=== PATIENT | male | born 1955 | race African-American/Black ===

== ENCOUNTER 2021-04-01 17:23 | Inpatient (IN) | payer MEDICARE, SELFPAY ==
[2021-04-01 23:54] VITALS: BMI 20.2
[2021-04-02] MEDS ORDERED: Acetaminophen 325 MG TAB PO PRN (04:57)
[2021-04-02] MEDS ORDERED: Ondansetron ODT 4 MG TAB PO PRN (04:57)
[2021-04-02] MEDS ORDERED: Acetaminophen 650 MG Suppository PR PRN (04:57)
[2021-04-02] MEDS ORDERED: Ondansetron PF 4 MG/2 ML Vial IVP PRN (04:57)
[2021-04-02] MEDS ORDERED: VANCOMYCIN 1.25 GM/250 ML BAG 1.25 GM in Premix Bag 1 BAG IVPB SCH (05:10)
[2021-04-02] MEDS: Cefepime 2 GM in Sodium Chloride 0.9% 100 ML IVPB SCH ×2 (06:09→16:59)
[2021-04-02] MEDS: Vancomycin 1 GM in Premix Bag 1 BAG IVPB SCH ×2 (06:09→17:16)
[2021-04-02] MEDS: Sodium Chloride 0.9% 1,000 ML IV SCH ×2 (06:09→16:59)
[2021-04-02] MEDS ORDERED: FLU VACC QS2021-22(6MOS UP)/PF 60 MCG/0.5 ML SYRINGE IM ONE (09:00)
[2021-04-02] MEDS: Enoxaparin Sodium 40 MG/0.4 ML SYRINGE SC SCH (10:13)
[2021-04-02 11:16] LABS: Albumin (w/Testosterone Panel) 3.5 g/dL
[2021-04-02 11:43] LABS: Sex Hormone Binding Globulin 86.4 nmol/L (11-78); Testosterone, Free 45.6 pg/mL (47-244); Testosterone, Total 428.5 ng/dL (221-716)
[2021-04-02 12:00] LABS: SARS-CoV-2 PCR by NAA Not Detected (NotDetected)
[2021-04-02] MEDS ORDERED: Bicalutamide 50 MG TAB PO SCH (15:30)
[2021-04-02] MEDS ORDERED: traMADol HCl 50 MG TAB PO PRN (15:50)
[2021-04-02] MEDS ORDERED: Polyethylene Glycol 3350 17 GM Packet PO SCH (16:15)
[2021-04-02] MEDS ORDERED: Lidocaine 5% Patch TD SCH (16:15)
[2021-04-02] MEDS: Amlodipine 10 MG TAB PO SCH (20:33)
[2021-04-02] MEDS: Tamsulosin HCl 0.4 MG CAP PO SCH (20:33)
[2021-04-02] MEDS: Docusate 100 MG CAP PO SCH (20:33)
[2021-04-02] MEDS: hydrALAZINE 25 MG TAB PO SCH (20:34)
[2021-04-02] MEDS: Transdermal Patch Removal TOP SCH (20:34)
[2021-04-03] MEDS: Cefepime 2 GM in Sodium Chloride 0.9% 100 ML IVPB SCH ×2 (05:18→16:47)
[2021-04-03] MEDS: Vancomycin 1 GM in Premix Bag 1 BAG IVPB SCH (05:20)
[2021-04-03 05:58] LABS: #Eosinphils 0.3 thou/uL (0.0-0.7); #Lymphocytes 1.4 thou/uL (1.20-3.40); #Monocytes 0.6 thou/uL (0.11-0.59); #Neutrophils 3.5 thou/uL (1.40-6.50); %Basophils 0.6 % (0.0-1.0); %Eosinophils 4.7 % (0.0-10.0); %Monocytes 9.7 % (0.0-10.0); Hemoglobin 11.1 g/dL (14.0-18.0); Mean Corpuscular HGB CONC 32.8 g/dL (32.0-36.0); Mean Corpuscular Hemoglobin 27.4 pg (27.0-31.0); Mean Corpuscular Volume 83.5 fL (78.0-98.0); Mean Platelet Volume 5.6 fL (7.4-10.4); Platelet Count 335 thou/uL (130-400); RBC Distribution Width 12.5 % (11.5-14.5); Red Blood Cell (RBC) Count 4.06 mill/uL (4.70-6.10); White Blood Cell (WBC) Count 5.7 thou/uL (4.8-10.8)
[2021-04-03 06:26] LABS: Anion Gap 11 mmol/L (10-20); BUN (Urea Nitrogen) 10 mg/dL (8.4-25.7); Calc. Creatinine Clearance 87 mL/min (70-130); Calcium 9.1 mg/dL (7.8-10.44); Carbon Dioxide 25 mmol/L (23-31); Chloride 105 mmol/L (98-107); Glucose 130 mg/dL (80-115); Potassium 3.7 mmol/L (3.5-5.1); Sodium 137 mmol/L (136-145)
[2021-04-03] MEDS: Docusate 100 MG CAP PO SCH ×2 (08:44→21:04)
[2021-04-03] MEDS: hydrALAZINE 25 MG TAB PO SCH ×3 (08:44→21:14)
[2021-04-03] MEDS: Bicalutamide 50 MG TAB PO SCH (08:44)
[2021-04-03] MEDS: Enoxaparin Sodium 40 MG/0.4 ML SYRINGE SC SCH (08:44)
[2021-04-03] MEDS: Lidocaine 5% Patch TD SCH (08:45)
[2021-04-03] MEDS: Polyethylene Glycol 3350 17 GM Packet PO SCH (08:45)
[2021-04-03 11:15] LABS: % Free PSA 3.7 % (.)
[2021-04-03] MEDS: Amlodipine 10 MG TAB PO SCH (21:05)
[2021-04-03] MEDS: Transdermal Patch Removal TOP SCH (21:05)
[2021-04-03] MEDS: Tamsulosin HCl 0.4 MG CAP PO SCH (21:05)
[2021-04-04] MEDS: Cefepime 2 GM in Sodium Chloride 0.9% 100 ML IVPB SCH ×2 (05:35→17:51)
[2021-04-04] MEDS: Polyethylene Glycol 3350 17 GM Packet PO SCH (07:29)
[2021-04-04] MEDS: Lidocaine 5% Patch TD SCH (07:29)
[2021-04-04] MEDS: Enoxaparin Sodium 40 MG/0.4 ML SYRINGE SC SCH (07:31)
[2021-04-04] MEDS: hydrALAZINE 25 MG TAB PO SCH ×2 (07:31→20:19)
[2021-04-04] MEDS: Docusate 100 MG CAP PO SCH ×2 (07:31→20:19)
[2021-04-04] MEDS: Bicalutamide 50 MG TAB PO SCH (07:37)
[2021-04-04] MEDS: Amlodipine 10 MG TAB PO SCH (20:19)
[2021-04-04] MEDS: Transdermal Patch Removal TOP SCH (20:19)
[2021-04-04] MEDS: Tamsulosin HCl 0.4 MG CAP PO SCH (20:19)
[2021-04-05] MEDS: Cefepime 2 GM in Sodium Chloride 0.9% 100 ML IVPB SCH ×2 (05:19→17:52)
[2021-04-05] MEDS: hydrALAZINE 25 MG TAB PO SCH ×2 (09:05→20:33)
[2021-04-05] MEDS: Enoxaparin Sodium 40 MG/0.4 ML SYRINGE SC SCH (09:05)
[2021-04-05] MEDS: Docusate 100 MG CAP PO SCH ×2 (09:05→20:33)
[2021-04-05] MEDS: Bicalutamide 50 MG TAB PO SCH (09:05)
[2021-04-05] MEDS: Lidocaine 5% Patch TD SCH ×2 (09:06→09:11)
[2021-04-05] MEDS: Polyethylene Glycol 3350 17 GM Packet PO SCH (09:06)
[2021-04-05] MEDS: Amlodipine 10 MG TAB PO SCH (20:33)
[2021-04-05] MEDS: Tamsulosin HCl 0.4 MG CAP PO SCH (20:33)
[2021-04-05] MEDS: Transdermal Patch Removal TOP SCH (20:34)
[2021-04-05] MEDS: Melatonin 3 MG TAB PO PRN (22:42)
[2021-04-05] MEDS: HYDROcodone/Acetaminophen 5/325 mg Tablet PO PRN (22:43)
[2021-04-06] MEDS: Cefepime 2 GM in Sodium Chloride 0.9% 100 ML IVPB SCH ×2 (05:30→17:36)
[2021-04-06] MEDS: HYDROcodone/Acetaminophen 5/325 mg Tablet PO PRN ×2 (05:33→17:37)
[2021-04-06] MEDS: Polyethylene Glycol 3350 17 GM Packet PO SCH (09:23)
[2021-04-06] MEDS: Docusate 100 MG CAP PO SCH ×2 (09:23→19:59)
[2021-04-06] MEDS: Enoxaparin Sodium 40 MG/0.4 ML SYRINGE SC SCH (09:23)
[2021-04-06] MEDS: Lidocaine 5% Patch TD SCH (09:23)
[2021-04-06] MEDS: hydrALAZINE 25 MG TAB PO SCH ×2 (09:23→19:58)
[2021-04-06] MEDS: Bicalutamide 50 MG TAB PO SCH (09:38)
[2021-04-06] MEDS: Transdermal Patch Removal TOP SCH (19:54)
[2021-04-06] MEDS: Amlodipine 10 MG TAB PO SCH (19:59)
[2021-04-06] MEDS: Tamsulosin HCl 0.4 MG CAP PO SCH (20:00)
[2021-04-07] MEDS: Cefepime 2 GM in Sodium Chloride 0.9% 100 ML IVPB SCH (06:42)
[2021-04-07] MEDS: HYDROcodone/Acetaminophen 5/325 mg Tablet PO PRN ×2 (06:48→17:42)
[2021-04-07] MEDS: hydrALAZINE 25 MG TAB PO SCH ×2 (09:44→20:18)
[2021-04-07] MEDS: Polyethylene Glycol 3350 17 GM Packet PO SCH (09:44)
[2021-04-07] MEDS: Bicalutamide 50 MG TAB PO SCH (09:44)
[2021-04-07] MEDS: Enoxaparin Sodium 40 MG/0.4 ML SYRINGE SC SCH (09:44)
[2021-04-07] MEDS: Docusate 100 MG CAP PO SCH ×2 (09:45→20:17)
[2021-04-07] MEDS: Lidocaine 5% Patch TD SCH (09:46)
[2021-04-07] MEDS: Amlodipine 10 MG TAB PO SCH (20:16)
[2021-04-07] MEDS: Tamsulosin HCl 0.4 MG CAP PO SCH (20:17)
[2021-04-07] MEDS: Transdermal Patch Removal TOP SCH (20:19)
[2021-04-08] MEDS: HYDROcodone/Acetaminophen 5/325 mg Tablet PO PRN ×2 (05:50→19:28)
[2021-04-08] MEDS: Bicalutamide 50 MG TAB PO SCH (09:20)
[2021-04-08] MEDS: hydrALAZINE 25 MG TAB PO SCH ×2 (09:21→20:52)
[2021-04-08] MEDS: Lidocaine 5% Patch TD SCH (09:21)
[2021-04-08] MEDS: Enoxaparin Sodium 40 MG/0.4 ML SYRINGE SC SCH (09:21)
[2021-04-08] MEDS: Polyethylene Glycol 3350 17 GM Packet PO SCH (09:21)
[2021-04-08] MEDS: Docusate 100 MG CAP PO SCH ×2 (09:21→20:55)
[2021-04-08 18:56] LABS: SARS-CoV-2 PCR by NAA Not Detected (NotDetected)
[2021-04-08] MEDS: Famotidine/PF 20 mg/2ml Vial SLOW IVP SCH (20:53)
[2021-04-08] MEDS: Melatonin 3 MG TAB PO PRN (20:54)
[2021-04-08] MEDS: Amlodipine 10 MG TAB PO SCH (20:54)
[2021-04-08] MEDS: Tamsulosin HCl 0.4 MG CAP PO SCH (20:55)
[2021-04-08] MEDS: Transdermal Patch Removal TOP SCH (21:49)
[2021-04-09] MEDS: HYDROcodone/Acetaminophen 5/325 mg Tablet PO PRN ×2 (06:32→20:07)
[2021-04-09] MEDS: Lidocaine 5% Patch TD SCH (09:06)
[2021-04-09] MEDS: hydrALAZINE 25 MG TAB PO SCH ×2 (09:09→20:11)
[2021-04-09] MEDS: Bicalutamide 50 MG TAB PO SCH (09:09)
[2021-04-09] MEDS: Enoxaparin Sodium 40 MG/0.4 ML SYRINGE SC SCH (09:09)
[2021-04-09] MEDS: Docusate 100 MG CAP PO SCH ×2 (09:09→20:06)
[2021-04-09] MEDS: Polyethylene Glycol 3350 17 GM Packet PO SCH (09:10)
[2021-04-09] MEDS: Famotidine/PF 20 mg/2ml Vial SLOW IVP SCH ×2 (13:46→20:02)
[2021-04-09] MEDS ORDERED: Famotidine 20 MG TAB PO SCH (14:00)
[2021-04-09] MEDS: Amlodipine 10 MG TAB PO SCH (20:06)
[2021-04-09] MEDS: Famotidine 20 MG TAB PO SCH (20:06)
[2021-04-09] MEDS: Tamsulosin HCl 0.4 MG CAP PO SCH (20:07)
[2021-04-09] MEDS: Melatonin 3 MG TAB PO PRN (20:07)
[2021-04-09] MEDS: Transdermal Patch Removal TOP SCH (20:11)
[2021-04-09 20:19] VITALS: TEMP 98.6
[2021-04-09] MEDS ORDERED: diphenhydrAMINE 25 MG CAP PO PRN (20:19)
[2021-04-10] MEDS: HYDROcodone/Acetaminophen 5/325 mg Tablet PO PRN (07:12)
[2021-04-10] MEDS: Famotidine/PF 20 mg/2ml Vial SLOW IVP SCH (08:32)
[2021-04-10 08:57] VITALS: BP 136/77
[2021-04-10] MEDS: hydrALAZINE 25 MG TAB PO SCH (10:03)
[2021-04-10] MEDS: Docusate 100 MG CAP PO SCH (10:03)
[2021-04-10] MEDS: Bicalutamide 50 MG TAB PO SCH (10:03)
[2021-04-10] MEDS: Polyethylene Glycol 3350 17 GM Packet PO SCH (10:04)
[2021-04-10] MEDS: Lidocaine 5% Patch TD SCH (10:04)
[2021-04-10] MEDS: Enoxaparin Sodium 40 MG/0.4 ML SYRINGE SC SCH (10:05)
[2021-04-10] MEDS: Famotidine 20 MG TAB PO SCH (10:05)
== END 2021-04-10 13:15 | disposition home or self-care (01) | DRG 698 ==
LOC: 2NO 17:23 → 2SW 04-02 20:30 → MSONC 04-05 22:06
PROVIDERS: ADMIT Internal Medicine; ATTEND Family Medicine
DX: T83.518A Infection and inflammatory reaction due to other urinary catheter, initial encounter (principal); A41.9 Sepsis, unspecified organism; N39.0 Urinary tract infection, site not specified; N13.8 Other obstructive and reflux uropathy; C79.51 Secondary malignant neoplasm of bone; C78.00 Secondary malignant neoplasm of unspecified lung; Z20.822 Contact with and (suspected) exposure to COVID-19; E03.9 Hypothyroidism, unspecified; M54.9 Dorsalgia, unspecified; G89.29 Other chronic pain; E11.9 Type 2 diabetes mellitus without complications; I10 Essential (primary) hypertension; L28.0 Lichen simplex chronicus; F17.210 Nicotine dependence, cigarettes, uncomplicated; F14.10 Cocaine abuse, uncomplicated; Y84.6 Urinary catheterization as the cause of abnormal reaction of the patient, or of later complication, without mention of misadventure at the time of the procedure; K59.00 Constipation, unspecified; N40.1 Benign prostatic hyperplasia with lower urinary tract symptoms; C61 Malignant neoplasm of prostate; Z79.899 Other long term (current) drug therapy
CPT/HCPCS: 36415; 78306; 80048; 83615; 84153; 84154; 84270; 84403; 84550; 85025; 93306; A9503; J0692; J1650; J3370; J3490; J7050; S0028; U0003; U0005